=== PATIENT | female | born 1965 | race Hispanic/Latino ===

== ENCOUNTER 2024-11-21 12:21 | Emergency (ER) | payer SELFPAY ==
[~2024-11-21] VITALS: Ht 172.7 cm; Wt 59.0 kg
[2024-11-21 13:18] LABS: BASOPHILS # (AUTO) 0.03 K/uL (0.00-0.20); BASOPHILS % (AUTO) 0.2 % (0.0-5.0); EOSINOPHILS # (AUTO) 0.03 K/uL (0.00-0.70); EOSINOPHILS % (AUTO) 0.2 % (0.0-8.0); HEMATOCRIT 37.1 % (36-48); IMMATURE GRANULOCYTE ABSOLUTE 0.06 K/uL (0-1); LYMPHOCYTES # (AUTO) 1.7 K/uL (1.0-4.8); LYMPHOCYTES % (AUTO) 13.3 % (21.0-51.0); MEAN CORPUSCULAR HGB CONC 33.4 g/dL (32.0-36.0); MEAN CORPUSCULAR VOLUME 92.8 fL (79-99); MONOCYTES # (AUTO) 0.9 K/uL (0.1-1.0); MONOCYTES % (AUTO) 7.5 % (3.0-13.0); NEUTROPHILS # (AUTO) 9.8 K/uL (1.8-7.7); NEUTROPHILS % (AUTO) 78.3 % (40.0-77.0); PLATELET COUNT (AUTO) 197 K/uL (130-400); RED CELL DISTRIBUTION WIDTH 13.2 % (11.0-15.5); WHITE BLOOD COUNT (AUTO) 12.5 K/uL (4.8-10.8)
[2024-11-21 13:40] LABS: ALANINE AMINOTRANSFERASE 50 U/L (12-78); ALBUMIN 3.7 g/dL (3.5-5.0); ALCOHOL, BLOOD < 3 mg/dL (0-10); ASPARTATE AMINOTRANSFERASE 31 U/L (10-37); BILIRUBIN,DIRECT 0.2 mg/dL (0.0-0.3); BILIRUBIN,TOTAL 0.8 mg/dL (0.2-1.0); CARBON DIOXIDE 28 mmol/L (21-32); CHLORIDE 104 mmol/L (101-111); GLOMERULAR FILTR. RATE CALC 66 mL/min (>90); GLUCOSE,RANDOM 103 mg/dL (70-105); SODIUM SERUM 140 mmol/L (136-145); TOTAL PROTEIN, SERUM 7.5 g/dL (6.0-8.3); UREA NITROGEN, BLOOD 34 mg/dL (7-18)
[2024-11-21 13:41] LABS: ACETAMINOPHEN < 1 mcg/mL (10-30); CREATINE KINASE, TOTAL 624 U/L (21-232); SALICYLATE < 2.8 mg/dL (2.8-20.0)
[2024-11-21] MEDS ORDERED: SERT-439 PO (13:52)
[2024-11-21] MEDS ORDERED: QUET100T34 PO (13:52)
[2024-11-21] MEDS ORDERED: HYDR-3421 PO (13:52)
[2024-11-21 14:20] LABS: APPEARANCE,URINE CLOUDY (CLEAR); BILIRUBIN,URINE NEGATIVE (NEGATIVE); COLOR,URINE YELLOW (YELLOW); GLUCOSE, URINE (UA) NEGATIVE (NEGATIVE); KETONES,URINE NEGATIVE (NEGATIVE); LEUKOCYTE ESTERASE ,URINE 75 Leu/uL (NEGATIVE); NITRATE,URINE NEGATIVE (NEGATIVE); OCCULT BLOOD,URINE MODERATE (NEGATIVE); PROTEIN,URINE 100 mg/dL (NEGATIVE)
--- NOTE | 2024-11-21 14:25 | ERN ---
ED Note History of Present Illness Stated Complaint: PSYCH Chief Complaint: Psych Evaluation Time Seen by MD: 12:31 Dictation: 58-year-old female with a history of depression presents to the ED for psych evaluation. Family states they brought patient in today because patient ran away and fell from a 7 ft fence, reporting head injury, but deny any LOC, vomiting or any other associated symptoms at this time. Family mentioned patient has been seen by PCP and was given prescriptions. They wanted to know if patient can be seen by [facility]. Allergies: Coded Allergies: No Known Drug Allergies (Unverified Allergy, Unknown, 11/21/24) Home Meds Reported Medications Quetiapine Fumarate (Quetiapine Fumarate) 100 Mg Tablet, 100 MG PO BID, TAB 11/21/24 Hydroxyzine HCl (Hydroxyzine HCl) 25 Mg Tablet, 25 MG PO DAILY for 30 Days, TAB 11/21/24 Sertraline HCl (Sertraline HCl) 50 Mg Tablet, 50 MG PO HS, TAB 11/21/24 Past Medical History Past Medical History: Depression Surgical History: None : 0 Review of System Dictation Constitutional: Positive for head injury Negative for fever,chills, and weight loss Eyes: Negative for injury, pain,redness, and discharge ENT: Negative for injury,pain or swelling Cardiovascular: Negative for chest pain, palpitations, and edema Respiratory: Negative for shortness of breath, cough, and wheezing, Abdomen/GI: Negative for abdominal pain, nausea, vomiting, diarrhea, and constipation Back: Negative for injury and pain : Negative for injury, bleeding and discharge MS/Extremity: Negative for injury and deformity Skin: Negative for rash, and discoloration Neuro: Negative for headache, LOC, weakness, numbness, tingling, and seizure Psych: Negative for suicide ideation, homicidal ideation, and hallucinations Initial Vital Sign VS Vital Signs Date Time Temp Pulse Resp B/P (MAP) Pulse Ox O2 Delivery O2 Flow Rate FiO2 11/21/24 13:38 97.3 71 20 108/80 99 Room Air 0 11/21/24 15:17 21 Physical Exam Dictation General: awake, alert, NAD Head/Face: Normocephalic, left cheekbone ecchymosis, patient contusion Eyes: PERRL, EOMI, vision at baseline ENT: oral cavity clear, TMs clear, no signs of infection Neck: Trachea midline, supple, no nuchal rigidity Cardiovascular: RRR, normal S1/S2, No MRGs, no JVD Respiratory: CTAB, no respiratory distress, No rales or wheezes Abdomen: Soft, non-tender, non-distended, normal bowel sounds, no guarding or rebound. Skin: Warm, dry, normal turgor, no rash MS/Extremity: Pulses equal, no cyanosis, neurovascular intact, FROM Neuro: COAx4, GCS 15, strength 5/5, CN 2-12 intact, normal cerebellar exam, normal gait, Psych: Patient appears paranoid Results (Laboratory/Radiology) Laboratory/Radiology Laboratory Tests Test 11/21/24 13:01 11/21/24 13:45 White Blood Count 12.5 K/uL (4.8-10.8) H Red Blood Count 4.00 MIL/uL (4.00-5.50) Hemoglobin 12.4 g/dL (12.0-16.0) Hematocrit 37.1 % (36-48) Mean Corpuscular Volume 92.8 fL (79-99) Mean Corpuscular Hemoglobin 31.0 pg (27.0-33.0) Mean Corpuscular Hemoglobin Concent 33.4 g/dL (32.0-36.0) Red Cell Distribution Width 13.2 % (11.0-15.5) Platelet Count 197 K/uL (130-400) Mean Platelet Volume 11.7 fL (7.5-10.5) H Immature Granulocyte % (Auto) 0.5 % (0-1) Neutrophils (%) (Auto) 78.3 % (40.0-77.0) H Lymphocytes (%) (Auto) 13.3 % (21.0-51.0) L Monocytes (%) (Auto) 7.5 % (3.0-13.0) Eosinophils (%) (Auto) 0.2 % (0.0-8.0) Basophils (%) (Auto) 0.2 % (0.0-5.0) Neutrophils # (Auto) 9.8 K/uL (1.8-7.7) H Lymphocytes # (Auto) 1.7 K/uL (1.0-4.8) Monocytes # (Auto) 0.9 K/uL (0.1-1.0) Eosinophils # (Auto) 0.03 K/uL (0.00-0.70) Basophils # (Auto) 0.03 K/uL (0.00-0.20) Absolute Immature Granulocyte (auto 0.06 K/uL (0-1) Nucleated Red Blood Cells 0.0 % (0.0-0.19) Sodium Level 140 mmol/L (136-145) Potassium Level 3.0 mmol/L (3.5-5.1) *L Chloride Level 104 mmol/L (101-111) Carbon Dioxide Level 28 mmol/L (21-32) Blood Urea Nitrogen 34 mg/dL (7-18) H Creatinine 1.0 mg/dL (0.5-1.0) Glomerular Filtration Rate Calc 66 mL/min (>90) Random Glucose 103 mg/dL (70-105) Total Calcium 9.6 mg/dL (8.5-10.1) Total Bilirubin 0.8 mg/dL (0.2-1.0) Direct Bilirubin 0.2 mg/dL (0.0-0.3) Aspartate Amino Transf (AST/SGOT) 31 U/L (10-37) Alanine Aminotransferase (ALT/SGPT) 50 U/L (12-78) Alkaline Phosphatase 127 U/L (50-136) Total Creatine Kinase 624 U/L (21-232) *H Total Protein 7.5 g/dL (6.0-8.3) Albumin 3.7 g/dL (3.5-5.0) Salicylates Level < 2.8 mg/dL (2.8-20.0) L Acetaminophen Level < 1 mcg/mL (10-30) L Serum Alcohol < 3 mg/dL (0-10) Urine Color YELLOW (YELLOW) Urine Appearance CLOUDY (CLEAR) H Urine pH 6.0 (5.0-8.0) Urine Specific Hayden 1.029 (1.001-1.031) Urine Protein 100 mg/dL (NEGATIVE) H Urine Glucose (UA) NEGATIVE mg/dL (NEGATIVE) Urine Ketones NEGATIVE mg/dL (NEGATIVE) Urine Occult Blood MODERATE (NEGATIVE) H Urine Nitrate NEGATIVE (NEGATIVE) Urine Bilirubin NEGATIVE mg/dL (NEGATIVE) Urine Urobilinogen 2.0 mg/dL (0.2-1.0) H Urine Leukocyte Esterase 75 Yaw/uL (NEGATIVE) H Urine RBC 26-50 /HPF (0-1) H Urine WBC 2-5 /HPF (0-1) H Urine Squamous Epithelial Cells MANY /HPF (0-2) Urine Transitional Epithelial Cells FEW /HPF (None Seen) Urine Bacteria None /HPF (None Seen) Urine Opiates Screen NEGATIVE (NEGATIVE) Urine Barbiturates Screen NEGATIVE (NEGATIVE) Urine Phencyclidine Screen NEGATIVE (NEGATIVE) Urine Amphetamines Screen NEGATIVE (NEGATIVE) Urine Benzodiazepines Screen NEGATIVE (NEGATIVE) Urine Cocaine Screen NEGATIVE (NEGATIVE) Urine Marijuana (THC) Screen NEGATIVE (NEGATIVE) Labs Reviewed?: Yes ED Course ED Course Orders Procedure Category Date Status Time Alcohol, Blood LAB 11/21/24 Complete 12:31 Basic Metabolic Panel LAB 11/21/24 Complete 12:31 Cbc With Differential LAB 11/21/24 Complete 12:31 Hepatic Function Panel LAB 11/21/24 Complete 12:31 Creatine Kinase, Total LAB 11/21/24 Complete 12:31 Acetaminophen LAB 11/21/24 Complete 12:31 Salicylate LAB 11/21/24 Complete 12:31 Urinalysis Profile LAB 11/21/24 Complete 12:31 Ct Head/Brain W/O CT 11/21/24 Resulted Contrast 14:11 Ziprasidone Mesylate PHA 11/21/24 Complete (Geodon) 14:30 Lorazepam 2 Mg PHA 11/21/24 Complete (Ativan) 14:30 Culture Urine VINCENZO 11/21/24 In Process 14:27 Potassium Chloride PHA 11/21/24 Complete 20meq Er (K-Dur/Klor- 15:00 Potassium Chl 10% PHA 11/21/24 Complete Elixir 20meq (Kcl 10% 17:30 Potassium Chl 10% PHA 11/21/24 Complete Elixir 20meq (Kcl 10% 17:08 Drug Screen Urine LAB 11/21/24 Complete 18:23 Potassium Chloride PHA 11/21/24 Complete 20meq/100ml ([place] 18:30 0.9%Nacl 1000ml (Ns PHA 11/21/24 Complete 1000ml) 19:00 Acetaminophen 325 Tab PHA 11/22/24 Complete (Tylenol 325mg Tab 08:30 Current Medications Medications (Trade) Dose Ordered Sig/Kennedi Route PRN Reason Start Time Stop Time Status Last Admin Dose Admin Acetaminophen (TYLenol 325MG TAB) 650 mg ONCE ONCE PO 11/22/24 08:30 11/22/24 08:32 DC 11/22/24 08:46 Lorazepam (AtiVAN) 2 mg ONCE ONCE IM 11/21/24 14:30 11/21/24 14:31 DC 11/21/24 16:34 Potassium Chloride 100 ml @ 50 mls/hr ONCE ONCE IV 11/21/24 18:30 11/21/24 20:29 DC 11/21/24 18:50 Potassium Chloride (K-Dur/Klor-Con 20meq) 40 meq ONCE ONCE PO 11/21/24 15:00 11/21/24 15:01 DC Potassium Chloride (KCl 10% Elixir 20meq/15ml) 20 meq STK-MED ONCE .ROUTE 11/21/24 17:08 11/21/24 17:09 DC Potassium Chloride (KCl 10% Elixir 20meq/15ml) 40 meq ONCE ONCE PO 11/21/24 17:30 11/21/24 17:31 DC 11/21/24 17:44 Sodium Chloride 1,000 ml @ 0 mls/hr ONCE ONCE IV 11/21/24 19:00 11/21/24 19:01 DC 11/21/24 18:50 Ziprasidone (Geodon) 10 mg ONCE ONCE IM 11/21/24 14:30 11/21/24 14:31 DC 11/21/24 16:44 Vital Signs Date Time Temp Pulse Resp B/P (MAP) Pulse Ox O2 Delivery O2 Flow Rate FiO2 11/22/24 08:38 98.2 92 18 128/61 99 Room Air* 0 11/22/24 06:49 99.9 120 20 148/94 99 Room Air* 0 11/22/24 03:15 98.1 78 16 112/62 98 Room Air* 0 11/21/24 23:00 98.2 82 16 114/52 99 Room Air* 0 11/21/24 18:57 85 16 116/49 98 Room Air* 0 11/21/24 15:17 106 20 104/62 97 Room Air* 0 11/21/24 13:38 97.3 71 20 108/80 99 Room Air 0 Medical Decision Making MDM MDM: Differential diagnosis: Depression, psychosis Rationale: Tests considered and ordered secondary to shared decision making include: labs, ECG and radiology Risk of complication and/or morbidity or mortality of patient management: None Medications-Per medication reconciliation Need for hospitalization: Patient does meet criteria for hospitalization. Need for emergency major/minor surgery: No There are no social concerns with this patient. Prescription drug management Prescriptions will include symptomatic care I independently interpreted the test that were performed, results were reviewed by me and considered findings on radiology if ordered. Medical management and examination interpretation discussions were had by me with other qualified healthcare professionals as indicated for the patient's care. CC: confusion depression request for trauma evaluation Historian: Family and patient Comorbidities: Depression Limitations by social determinants of health: Uninsured Differential diagnosis: Organic pathology, depression, dementia, suicidal homicidal ideation, rin, other. Vital signs: Stable, remained stable in the ER. Lab work ( independently ordered interpreted by me): CBC mild leukocytosis 12 .5k left shift. No bands. chemistry shows a low potassium, CK 624. Tox screen negative. Urinalysis does show some leuk esterase and occult blood. Treatment in ER: IM Ativan and ziprasidone. Potassium supplementation. IV fluids. Tylenol. CT head without contrast ( independently interpreted by me ): No acute bleed or abnormalities. Patient medically cleared for psychiatric evaluation Consultation: [facility] evaluated the patient. I discussed the case with the specialist. Patient does not meet inpatient criteria. Will DC to PCP follow up. DX & DISP Disposition: Discharge Departure Impression: Primary Impression: Altered mental state Condition: Stable Additional Instructions: You do not meet criteria for inpatient psychiatric evaluation at this time. Your vital signs have been stable in the ER. The CT scan of your brain is unremarkable. Your lab work (CBC, BMP, urine drug screen, alcohol level, CK) shows mild signs of dehydration and low potassium. This was corrected in the ER. You were evaluated by [facility]. You do not meet criteria for inpatient services at this time. I recommend that you follow up with [facility] as an outpatient. You can also follow up with your primary doctor. Return to the emergency department as needed. Referrals: ANGELICA WOLFE (PCP) IWONA SMITH MD Nov 21, 2024 14:25 CHARLENE ALMARAZ DO Nov 22, 2024 09:52
[2024-11-21 14:27] LABS: ADD UA MICROSCOPIC YES
[2024-11-21] MEDS: PoTASSium chloRIDE 20MEQ ER 20 MEQ ERTAB PO ONE (14:37)
[2024-11-21] MEDS: ZIPRASIDONE MESYLATE 20 MG/VIAL IM ONE (14:38)
[2024-11-21 15:08] LABS: MUCUS,URINE MANY LPF (None Seen); RBC,URINE 26-50 /HPF (0-1); SQUAMOUS EPITHELIAL CELL,UR MANY /HPF (0-2); TRANSITIONAL EPI CELLS,URINE FEW /HPF (None Seen)
--- NOTE | 2024-11-21 15:25 | NUR ---
PATIENT REFUSING MEDS
[2024-11-21] MEDS: LORazepam 2 MG/ML 1 ML VIAL IM ONE (16:34)
--- NOTE | 2024-11-21 17:16 | HMCIMG ---
Exam: NONCONTRAST CT BRAIN REASON: fall. COMPARISON: None. TECHNIQUE: Images are obtained from vertex to the skull base. The exam was performed without IV contrast. FINDINGS: There is normal appearing brain parenchyma. There are no focal mass lesions. There is is no evidence of intracranial hemorrhage or acute stroke. Ventricles and sulci appear normal. Posterior fossa and brainstem structures are unremarkable. Paranasal sinuses and remaining extracranial soft tissues appear normal as well. IMPRESSION: 1. Normal noncontrast CT brain. CT was performed with one or more following dose reduction techniques: automated exposure control, adjustment of the mA and kv according to patient's size, or use of a iterative reconstruction technique.
[2024-11-21] MEDS: PoTASSium chl 10% ELIXIR 20MEQ 20 MEQ/15 ML UDCUP ONE (17:44)
[2024-11-21] MEDS: PoTASSium chl 10% ELIXIR 20MEQ 20 MEQ/15 ML UDCUP PO ONE (17:44)
--- NOTE | 2024-11-21 18:24 | NUR ---
SPOKE TO KALYN WITH [facility] IN REGARDS TO PT, SHE WILL CONTACT [employer] MANAGER[employer] SITE COORDINATOR TO COME EVAL PT.
[2024-11-21 18:38] LABS: AMPHET/METH SCREEN,URINE NEGATIVE (NEGATIVE); BARBITURATE SCREEN, URINE NEGATIVE (NEGATIVE); BENZODIAZEPINES SCREEN,URINE NEGATIVE (NEGATIVE); CANNABINOID SCREEN,URINE NEGATIVE (NEGATIVE); COCAINE SCREEN,URINE NEGATIVE (NEGATIVE); OPIATE SCREEN,URINE NEGATIVE (NEGATIVE); PHENCYCLIDINE SCREEN,URINE NEGATIVE (NEGATIVE)
[2024-11-21] MEDS: PoTASSium chloRIDE 20MEQ/100ML 100 ML IV ONE (18:50)
[2024-11-21] MEDS: 0.9%NACL 1000ML 1,000 ML IV ONE (18:50)
--- NOTE | 2024-11-21 18:58 | NUR ---
TROPICAL EVAL TROPICAL EVAL FROM [facility] CURRENTLY SPEAKING TO PATIENTS NIECE PATIENT RESTING IN BED, PATIENT REFUSED PO POTASSIUM AND IS CURRENTLY RECIEVING IV POTASSIUM
[2024-11-22] MEDS: acetaMINOPHEN 325 MG TAB PO ONE (08:46)
--- NOTE | 2024-11-22 08:54 | NUR ---
PSYCH EVALUATION: CURTIS REYNA PSYCH EVALUATER CURRENTLY AT BEDSIDE PORTER W/PT.
[2024-11-22 10:15] VITALS: BP 128/61; PULSE 92; RESP 18; TEMP 98.2; O2SAT 99
== END 2024-11-22 10:56 | disposition home or self-care (01) ==
LOC: EDH 12:21
DX: S00.83XA Contusion of other part of head, initial encounter (principal); R41.82 Altered mental status, unspecified; Z79.899 Other long term (current) drug therapy; W18.39XA Other fall on same level, initial encounter; Y93.02 Activity, running; Y92.89 Other specified places as the place of occurrence of the external cause; Y99.8 Other external cause status
CPT/HCPCS: 99285; 96360; 70450; 82550; 80076; 80048; 80305; 85025; 87086; 36415; 81001; 96372 ×2; G0481; J2060; J3480; J3486